=== PATIENT | female | born 1980 | race Caucasian/White ===

== ENCOUNTER 2016-12-27 10:37 | Emergency (ER) | payer MEDICAID, OTHER ==
[2016-12-27] MEDS ORDERED: HYDROmorphone 1 MG/ML Syringe IM ONE (10:59)
--- NOTE | 2016-12-27 11:01 | EDM.PDOC ---
ED HPI GENERAL MEDICAL PROBLEM - General Chief Complaint: Lower Extremity Injury/Pain Stated Complaint: TWISTED ANKLE LAST NIGHT Time Seen by Provider: 12/27/16 10:55 Source of Information: Reports: Patient, Family, RN Notes Reviewed History Limitations: Reports: No Limitations - History of Present Illness INITIAL COMMENTS - FREE TEXT/NARRATIVE: 36-year-old female presents emergency department day complaint of left foot pain , she injured herself last night when she actually caught the side of her shoe in between 2 boards on the deck producing a twisting injury, she has no pain in the ankle or the knee there was no loss of consciousness with fall. She is having difficulty ambulating does the foot pain predominantly over digits 3 through 5 did use crutches to ambulate into the emergency department, she has use ibuprofen at home for pain control with minimal relief - Related Data Allergies Allergy/AdvReac Type Severity Reaction Status Date / Time No Known Allergies Allergy Verified 12/27/16 10:49 Home Meds: Home Meds Aluminum Chloride [Drysol] 60 ml TP BEDTIME PRN 01/11/14 [History] Clindamycin Phos/Benzoyl Perox [Clindamycin-Benzoyl Perox 1-5%] 1 cm TOP BID [History] Levonorgestrel-Ethin Estradiol [Lessina] 1 each PO DAILY 01/11/14 [History] Minocycline [Minocin] 100 mg PO BID 01/11/14 [History] Multivitamin with Minerals [Multiple Vitamin] 1 tab PO DAILY 01/11/14 [History] Spironolactone 50 mg PO BEDTIME 01/11/14 [History] Spironolactone 100 mg PO DAILY 01/11/14 [History] Tretinoin [Tretinoin] 0.1 cm TOP BEDTIME 01/11/14 [History] Vitamin B Complex [B Complex] 1 each PO DAILY 01/11/14 [History] Past Medical History - Past Health History Medical/Surgical History: Denies Medical/Surgical History - Past Surgical History GI Surgical History: Reports: Cholecystectomy Female Surgical History: Reports: Endometrial Ablation Social & Family History - Tobacco Use Smoking Status *Q: Current Every Day Smoker Years of Tobacco use: 15 Packs/Tins Daily: 0.5 - Alcohol Use Days Per Week of Alcohol Use: 0 - Recreational Drug Use Recreational Drug Use: No Review of Systems - Review of Systems Review Of Systems: See Below Musculoskeletal: Reports: Foot Pain Skin: Reports: No Symptoms Neurological: Reports: No Symptoms ED EXAM, GENERAL - Physical Exam Exam: See Below Free Text/Narrative:: Examination left foot I do appreciate some edema in the left foot predominately over the metatarsal area 3-5, I don't appreciate any bruising there is no break the skin, there is no tenderness to palpation over the knee or ankle anterior drawer and tilt test of the ankle are both negative she is tender to palpation over metatarsals 3 through 5 she has full range of motion of all the digits and pedal pulse is +2 Exam Limited By: No Limitations General Appearance: Alert, WD/WN, No Apparent Distress Course - Orders/Labs/Meds Orders: Active Orders 24 hr Category Date Time Status Foot Comp Min 3V Lt [CR] Stat Exams 12/27/16 10:58 Taken Meds: Medications Discontinued Medications Generic Name Dose Route Start Last Admin Trade Name Freq PRN Reason Stop Dose Admin Hydromorphone HCl 1 mg 12/27/16 10:59 12/27/16 11:04 Dilaudid IM 12/27/16 11:00 1 mg ONETIME ONE Administration Departure - Departure Time of Disposition: 11:28 Disposition: Home, Self-Care 01 Condition: Good Clinical Impression: Sprain of foot, left Qualifiers: Encounter type: initial encounter Qualified Code(s): S93.602A - Unspecified sprain of left foot, initial encounter - Discharge Information Referrals: PCP,None [Primary Care Provider] - Forms: ED Department Discharge Additional Instructions: Use ibuprofen for baseline pain control, use hydrocodone as needed for breakthrough pain, Please followup with your primary care provider in 3-5 days if not better, please call return to the emergency department with worsening of symptoms. - My Orders Last 24 Hours: My Active Orders 12/27/16 10:58 Foot Comp Min 3V Lt [CR] Stat - Assessment/Plan Last 24 Hours: My Active Orders 12/27/16 10:58 Foot Comp Min 3V Lt [CR] Stat Plan: Assessment Acuity = acute Site and laterality = left foot sprain over digits 3 through 5 metatarsal area Etiology = secondary to twisting injury Manifestations = pain Location of injury = Home Lab values = foot x-ray I did review films myself I cannot appreciate any acute process, the official read from radiology is pending Plan She has crutches and a cam walking boot at home plan is to discharge home with 10 hydrocodone 07/23/24 every 4-6 hours when necessary for breakthrough pain ibuprofen for baseline pain control follow up with primary care in 3-5 days if no improvement will contact if the radiology read is different Patient was in agreement with the plan all questions were answered, they were instructed to return to the emergency department or call for worsening symptoms. This note was dictated using [employer] voice recognition software please call with any questions.
--- NOTE | 2016-12-29 10:27 | CR ---
Foot Comp Min 3V Lt HISTORY: Trauma COMPARISON: None FINDINGS:There is normal alignment. There are no posttraumatic findings. There are no significant deg enerative changes. No evidence of fracture, dislocation, or arthritic or inflammatory change. The sof t tissues are unremarkable. IMPRESSION: Negative exam of the foot.
== END 2016-12-27 11:47 | disposition home or self-care (01) ==
LOC: JP.ED 10:37
DX: S93.602A Unspecified sprain of left foot, initial encounter (principal); F17.210 Nicotine dependence, cigarettes, uncomplicated; Z90.49 Acquired absence of other specified parts of digestive tract; Z79.899 Other long term (current) drug therapy; X50.1XXA Overexertion from prolonged static or awkward postures, initial encounter
CPT/HCPCS: 73630; 96372; 99284; J1170; 99283